=== PATIENT | female | born 1965 | race Two or more races ===

== ENCOUNTER 2017-12-23 13:44 | Emergency (ER) | payer MEDICAID, OTHER, SELFPAY ==
[~2017-12-23] VITALS: Ht 154.9 cm; Wt 68.5 kg
[2017-12-23] MEDS ORDERED: TYLENOL325 MG ORAL (14:26)
--- NOTE | 2017-12-23 14:51 | Emergency Room Report ---
History of Present Illness General Chief Complaint: Multiple Trauma/Fall Source: Patient Present Illness HPI 52-year-old female, mechanical fall, fell onto her knees, and her thumb. Patient complaining of distal thumb pain, however hasn't been able to move it without issue. Did not hit her head or lose consciousness. Allergies: Coded Allergies: No Known Allergies (Unverified , 12/23/17) Patient History Past Medical History: see triage record Past Surgical History: none Pertinent Family History: none Reviewed Nursing Documentation: PMH: Agreed, PSxH: Agreed Nursing Documentation-PMH Past Medical History: No Stated History Review of Systems All Other Systems: negative except mentioned in HPI Physical Exam Vital Signs Date Time Temp Pulse Resp B/P (MAP) Pulse Ox O2 Delivery O2 Flow Rate FiO2 12/23/17 13:50 97.6 67 17 119/77 97 Room Air 97.5 Sp02 EP Interpretation: reviewed, normal General Appearance: normal inspection, well appearing, no apparent distress, alert, GCS 15, non-toxic Head: normocephalic, atraumatic Eyes: bilateral eye normal inspection, bilateral eye PERRL, bilateral eye EOMI ENT: normal ENT inspection, normal pharynx, normal voice, moist mucus membranes Neck: normal inspection, full range of motion, supple Respiratory: normal inspection, lungs clear, normal breath sounds, no respiratory distress, no retraction, no wheezing, speaking full sentences, chest symmetrical Cardiovascular #1: normal inspection, regular rate, rhythm, normal capillary refill Cardiovascular #2: 2+ radial (R), 2+ radial (L) Gastrointestinal: normal inspection, non tender, soft, non-distended, no guarding Musculoskeletal: other - Bilateral knees with superficial abrasion, no bleeding , right thumb very mild ecchymosis noted at the PIP, full range of motion, no laxity, good pinch grasp throughout Neurologic: other Psychiatric: normal inspection, judgement/insight normal, memory normal Skin: normal inspection, normal color, no rash, warm/dry, well hydrated, normal turgor Medical Decision Making Diagnostic Impression: Primary Impression: Thumb contusion ER Course 52-year-old female with right thumb pain DDX: Contusion vs. fracture There is no tenderness, deformity, laxity of the MCP joint Plan: XR ER course: Stable during ED stay Disposition: Patient is to be discharged home with a prescription of Tylenol Strict precautions discussed with patient on when to return to the emergency room including increased redness or swelling joints, increased pain/swelling of extremity, fever or chills, which could indicate severe illness. Patient is to follow up with their primary care doctor within 5 days. Patient also instructed to follow up with an orthopedic doctor if continuing to have mild/moderate pain as he may need further outpatient imaging. Patient agrees with plan. Please note that this Emergency Department Report was dictated using [employer] packer technology software, occasionally this can lead to erroneous entry secondary to interpretation by the dictation equipment. Xray ordered: Right hand 3 view Indication: Pain EP Interpretation: Yes Interpretation: No dislocation, no soft tissue swelling, no fractures Impression: No acute disease Electronically signed by Ricardo Bean MD Last Vital Signs Date Time Temp Pulse Resp B/P (MAP) Pulse Ox O2 Delivery O2 Flow Rate FiO2 12/23/17 13:50 97.6 67 17 119/77 97 Room Air 97.5 Disposition: HOME, SELF-CARE Condition: Improved Scripts Acetaminophen (Tylenol) 325 Mg Tablet 650 MG ORAL Q6H Y for Prn Pain/Headache/Temp > 101, #30 TAB 0 Refills Prov: Ricardo Bean M.D. 12/23/17 Referrals: NOT CHOSEN IPA/,REFERRING (PCP) Patient Instructions: Contusion, Famp-lv-Tper Ricardo Bean M.D. Dec 23, 2017 14:51
[2017-12-23 14:56] VITALS: BP 119/77
--- NOTE | 2017-12-23 15:11 | Diagnostic Imaging Report ---
Indications: Reason For Exam: PAIN Technique: 3 views of the right hand Comparison: None Findings: No acute fractures. No dislocations. Joint spaces are preserved. No radiopaque foreign body. Normal mineralization. Impression: No acute process
== END 2017-12-23 14:58 | disposition home or self-care (01) ==
LOC: EMR 14:25
DX: S60.011A Contusion of right thumb without damage to nail, initial encounter (principal); W19.XXXA Unspecified fall, initial encounter; Y92.9 Unspecified place or not applicable
CPT/HCPCS: 99283